=== PATIENT | male | born 1965 | race African-American/Black ===

== ENCOUNTER 2019-07-10 13:26 | Inpatient (IN) | payer OTHER ==
[2019-07-10 16:35] VITALS: BMI 23.0
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
[2019-07-10] MEDS ORDERED: MAGNESIUM HYDROX 2400MG/30ML ORAL SUSPENSION 30 ML CUP PO PRN (18:35)
[2019-07-10] MEDS ORDERED: METHOCARBAMOL 500 MG TABLET PO PRN (18:35)
[2019-07-10] MEDS ORDERED: MENTHOL/PHENOL 1 EACH UD MM PRN (18:35)
[2019-07-10] MEDS ORDERED: ACETAMINOPHEN 325 MG TABLET (FP) PO PRN ×2 (18:35)
[2019-07-10] MEDS ORDERED: IBUPROFEN 400 MG TABLET (FP) PO PRN (18:35)
[2019-07-10] MEDS ORDERED: MAGNESIUM CITRATE 300 ML BOTTLE PO PRN (18:35)
[2019-07-10] MEDS ORDERED: MAG HYDROX/AL HYDROX/SIMETH 30 ML UNIT-DOSE CUP PO PRN (18:35)
[2019-07-10] MEDS ORDERED: NICOTINE POLACRILEX 2 MG GUM BUC PRN (18:35)
[2019-07-10] MEDS ORDERED: hydrOXYzine PAMOATE 25 MG CAPSULE (FP) PO PRN (18:35)
[2019-07-10] MEDS ORDERED: BISMUTH SUBSALICYLATE 524 MG/30 ML UD PO PRN (18:35)
[2019-07-10] MEDS ORDERED: cloNIDine HCL 0.1 MG TABLET PO PRN (18:36)
[2019-07-10] MEDS: THIAMINE HCL 100 MG TABLET (FP) PO SCH (21:19)
[2019-07-10] MEDS: AMOX TR/POT CLAV 875MG/125MG TABLETS (FP) PO SCH (21:19)
[2019-07-10] MEDS: MELATONIN 5 MG TABLETS PO PRN (21:19)
[2019-07-11] MEDS ORDERED: METHADONE HCL 5 MG TABLET (FOR DETOX USE ONLY) PO ONE (10:00)
[2019-07-11] MEDS: AMOX TR/POT CLAV 875MG/125MG TABLETS (FP) PO SCH ×2 (10:01→22:18)
[2019-07-11] MEDS: PRENATAL VITAMINS W/ FOLIC ACID TABLET (FP) PO SCH (10:02)
[2019-07-11 10:23] LABS: HEMATOCRIT 36.8 % (35.4-49); MCH 27.9 pg (25.7-33.7); MCHC 32.7 g/dl (32.0-35.9); MEAN CELL VOLUME 85.4 fl (80-96); MEAN PLT VOLUME 7.4 fl (7.5-11.1); PLATELET COUNT 252 K/MM3 (134-434); RDW 15.8 % (11.9-15.9); WHITE BLOOD COUNT 4.8 K/mm3 (4.0-10.0)
[2019-07-11 10:36] LABS: ALBUMIN 2.4 g/dl (3.4-5.0); BILIRUBIN,DIRECT 0.1 mg/dL (0.0-0.2); BILIRUBIN,TOTAL 0.2 mg/dL (0.2-1); BLOOD UREA NITROGEN 13.8 mg/dL (7-18); CALCIUM 7.9 mg/dL (8.5-10.1); CREATININE 0.9 mg/dL (0.55-1.3); POTASSIUM 3.7 mmol/L (3.5-5.1); TOT PROT 5.5 g/dl (6.4-8.2)
--- NOTE | 2019-07-11 11:23 | EKG ---
Test Reason : Blood Pressure : / mmHG Vent. Rate : 057 BPM Atrial Rate : 057 BPM P-R Int : 142 ms QRS Dur : 084 ms QT Int : 412 ms P-R-T Axes : 073 066 067 degrees QTc Int : 401 ms SINUS BRADYCARDIA POSSIBLE LEFT ATRIAL ENLARGEMENT BORDERLINE ECG NO PREVIOUS ECGS AVAILABLE Confirmed by Hung Hewitt MD ([id number]) on 07/11/2019 11:23:23 AM Referred By: APOLINAR Confirmed By:Hung Hewitt MD
--- NOTE | 2019-07-11 11:42 | PN ---
BHS COWS - Scale Resting Pulse: 0= CT 80 or Below Sweatin= Chills/Flushing Restless Observation: 0= Sits Still Pupil Size: 1= Pupils >than Normal Bone or Joint Aches: 1= Mild Discomfort Runny Nose/ Eye Tearin= None GI Upset > 30mins: 0= None Tremor Observation of Outstretched Hands: 1= Tremor [place], Not Seen Yawning Observation: 0= None Anxiety or Irritability: 1=Feels Anxious/Irritable Goose Flesh Skin: 3=Piloerection COWS Score: 8 BHS Progress Note (SOAP) Subjective: 54 years old male admitted on 07/10/19 for opiate withdrawal sx management treating with methadone detox regimen taking augmentin for right mid finger abscess patient is doing ok today Objective: 07/11/19 11:42 Vital Signs Temperature 99.4 F 07/11/19 08:23 Pulse Rate 79 07/11/19 08:23 Respiratory Rate 18 07/11/19 08:23 Blood Pressure 109/68 07/11/19 08:23 O2 Sat by Pulse Oximetry (%) 07/11/19 07/11/19 07:30 07:30 WBC 4.8 RBC 4.30 Hgb 12.0 Hct 36.8 MCV 85.4 MCHC 32.7 RDW 15.8 Plt Count 252 Sodium 142 Potassium 3.7 Chloride 108 H Carbon Dioxide 28 Anion Gap 5 L BUN 13.8 Creatinine 0.9 lab noted Assessment: 07/11/19 11:43 opiate withdrawal Plan: methadone regiment
[2019-07-11] MEDS: MELATONIN 5 MG TABLETS PO PRN (22:18)
[2019-07-11] MEDS: THIAMINE HCL 100 MG TABLET (FP) PO SCH (22:18)
[2019-07-12] MEDS ORDERED: METHADONE HCL 10 MG TABLET (FOR DETOX USE ONLY) PO ONE (10:00)
[2019-07-12] MEDS: PRENATAL VITAMINS W/ FOLIC ACID TABLET (FP) PO SCH (10:12)
[2019-07-12] MEDS: AMOX TR/POT CLAV 875MG/125MG TABLETS (FP) PO SCH ×2 (10:14→22:22)
--- NOTE | 2019-07-12 11:06 | PN ---
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 the office will call back the next business day for an appointment encourage the patient to call and make an appointment Objective: 07/12/19 11:20 Vital Signs Temperature 97.0 F L 07/12/19 08:47 Pulse Rate 83 07/12/19 08:47 Respiratory Rate 18 07/12/19 08:47 Blood Pressure 118/67 07/12/19 08:47 O2 Sat by Pulse Oximetry (%) Laboratory Last Values WBC 4.8 K/mm3 (4.0-10.0) 07/11/19 07:30 RBC 4.30 M/mm3 (4.00-5.60) 07/11/19 07:30 Hgb 12.0 GM/dL (11.7-16.9) 07/11/19 07:30 Hct 36.8 % (35.4-49) 07/11/19 07:30 MCV 85.4 fl (80-96) 07/11/19 07:30 MCH 27.9 pg (25.7-33.7) 07/11/19 07:30 MCHC 32.7 g/dl (32.0-35.9) 07/11/19 07:30 RDW 15.8 % (11.9-15.9) 07/11/19 07:30 Plt Count 252 K/MM3 (134-434) 07/11/19 07:30 MPV 7.4 fl (7.5-11.1) L 07/11/19 07:30 Sodium 142 mmol/L (136-145) 07/11/19 07:30 Potassium 3.7 mmol/L (3.5-5.1) 07/11/19 07:30 Chloride 108 mmol/L (98-107) H 07/11/19 07:30 Carbon Dioxide 28 mmol/L (21-32) 07/11/19 07:30 Anion Gap 5 MMOL/L (8-16) L 07/11/19 07:30 BUN 13.8 mg/dL (7-18) 07/11/19 07:30 Creatinine 0.9 mg/dL (0.55-1.3) 07/11/19 07:30 Est GFR (CKD-EPI)AfAm 110.27 07/11/19 07:30 Est GFR (CKD-EPI)NonAf 95.14 07/11/19 07:30 Random Glucose 82 mg/dL (74-106) 07/11/19 07:30 Calcium 7.9 mg/dL (8.5-10.1) L 07/11/19 07:30 Total Bilirubin 0.2 mg/dL (0.2-1) 07/11/19 07:30 Direct Bilirubin 0.1 mg/dL (0.0-0.2) 07/11/19 07:30 AST 17 U/L (15-37) 07/11/19 07:30 ALT 22 U/L (13-61) 07/11/19 07:30 Alkaline Phosphatase 57 U/L (45-117) 07/11/19 07:30 Total Protein 5.5 g/dl (6.4-8.2) L 07/11/19 07:30 Albumin 2.4 g/dl (3.4-5.0) L 07/11/19 07:30 RPR Titer Nonreactive (NONREACTIVE) 07/11/19 07:30 lab noted Assessment: 07/12/19 11:20 opiate withdrawal right 3rd finger abscess treated in ER on 07/07/19 required to keep dressing clean and dry Plan: methadone regiment strong recommend the patient to complete augmentin
[2019-07-12] MEDS: THIAMINE HCL 100 MG TABLET (FP) PO SCH (22:21)
[2019-07-12] MEDS: MELATONIN 5 MG TABLETS PO PRN (22:22)
[2019-07-13] MEDS ORDERED: METHADONE HCL 5 MG TABLET (FOR DETOX USE ONLY) PO ONE (06:00)
[2019-07-13 09:33] VITALS: BP 105/60; PULSE 87; TEMP 98.2
[2019-07-13] MEDS: PRENATAL VITAMINS W/ FOLIC ACID TABLET (FP) PO SCH (10:01)
[2019-07-13] MEDS: AMOX TR/POT CLAV 875MG/125MG TABLETS (FP) PO SCH (10:02)
== END 2019-07-13 10:32 | disposition home or self-care (01) | DRG 773 ==
LOC: YASAS 13:26 → Y3N 18:34
PROVIDERS: ADMIT Allergy & Immunology; ATTEND Allergy & Immunology
PROC: HZ2ZZZZ Detoxification Services for Substance Abuse Treatment (ICD-10-PCS; principal; 2019-07-10)
DX: F11.23 Opioid dependence with withdrawal (principal); F14.20 Cocaine dependence, uncomplicated; F17.210 Nicotine dependence, cigarettes, uncomplicated; Z59.0 Homelessness; Z87.2 Personal history of diseases of the skin and subcutaneous tissue
CPT/HCPCS: 36415; 80053; 80076; 85027; 86593; 93005; 93010